=== PATIENT | female | born 1965 | race Caucasian/White ===

== ENCOUNTER → 2022-11-16 | Outpatient (CLI) | payer OTHER | LOC: M PLARAD 13:06 | PROVIDERS: ATTEND Orthopaedic Surgery Hand Surgery | DX: M79.641 Pain in right hand (principal) ==

== ENCOUNTER 2022-12-05 10:10 | Day surgery (SDC) | payer OTHER ==
[~2022-12-05] VITALS: Ht 162.6 cm; Wt 113.9 kg
[~2022-12-05 10:10] MED LIST: GABA-1171 PO
[2022-12-05] MEDS ORDERED: LIDOCAINE 1% SDV 5ML VIAL SC PRN (10:30)
[2022-12-05] MEDS ORDERED: LR 1,000 ML IV SCH ×2 (10:30→15:10)
[2022-12-05] MEDS ORDERED: ceFAZolin SOD 2 GM in IV 1 EA IV ONE (13:05)
[2022-12-05] MEDS ORDERED: BACITRACIN OINTMENT 30GM TUBE As Ordered ONE (13:49)
[2022-12-05] MEDS ORDERED: BUPIVACAINE HCL 0.25% 30ML VIAL As Ordered ONE (13:49)
[2022-12-05] MEDS ORDERED: LIDOCAINE 1% MDV 20ML VIAL As Ordered ONE (13:49)
[2022-12-05] MEDS ORDERED: MIDAZOLAM INJ 2MG/2ML VIAL As Ordered ONE (13:56)
[2022-12-05] MEDS ORDERED: LIDOCAINE 2% 100MG/5ML SDV (FOR ANES.) As Ordered ONE (13:56)
[2022-12-05] MEDS ORDERED: ONDANSETRON 4MG 2ML VIAL As Ordered ONE ×2 (13:56→15:15)
[2022-12-05] MEDS ORDERED: fentaNYL 100 MCG/2 ML INJECTION As Ordered ONE ×2 (13:56→15:10)
[2022-12-05] MEDS ORDERED: propofoL 200 MG/20 ML VIAL As Ordered ONE (13:57)
[2022-12-05] MEDS ORDERED: ACETAMINOPHEN 1000MG 100ML IV BAG As Ordered ONE (14:15)
[2022-12-05] MEDS ORDERED: KETOROLAC 60MG 2ML VIAL As Ordered ONE (14:16)
[2022-12-05] MEDS: fentaNYL 100 MCG/2 ML INJECTION IV PRN ×4 (15:10→15:25)
[2022-12-05] MEDS ORDERED: oxyCODONE 5MG TAB PO PRN (15:10)
[2022-12-05] MEDS ORDERED: ONDANSETRON 4MG 2ML VIAL IV PRN (15:10)
[2022-12-05] MEDS ORDERED: PERC5TAB12 PO (15:20)
[2022-12-05 16:10] VITALS: BP 139/94
== END 2022-12-05 16:15 | disposition home or self-care (01) ==
LOC: M SDC 10:10
PROVIDERS: ATTEND Orthopaedic Surgery Hand Surgery
DX: C43.61 Malignant melanoma of right upper limb, including shoulder (principal); B95.61 Methicillin susceptible Staphylococcus aureus infection as the cause of diseases classified elsewhere; B95.4 Other streptococcus as the cause of diseases classified elsewhere; E03.9 Hypothyroidism, unspecified; M54.9 Dorsalgia, unspecified; Z79.899 Other long term (current) drug therapy; Z79.890 Hormone replacement therapy; Z91.14 Patient's other noncompliance with medication regimen; Z85.42 Personal history of malignant neoplasm of other parts of uterus
CPT/HCPCS: 26111; 76000; 87070; 87075; 87076; 87077; 87102; 87116; 87186; 87205; 87206; 88307; J0690; J1100; J2250; J2405; J3010

== ENCOUNTER → 2023-01-14 | Outpatient (CLI) | payer OTHER ==
[~2023-01-14] MED LIST changes: +PERC5TAB12 PO
== END ==
LOC: M PLARAD 14:13
PROVIDERS: ATTEND Internal Medicine
DX: C43.61 Malignant melanoma of right upper limb, including shoulder (principal)
CPT/HCPCS: 78816; A9552

== ENCOUNTER → 2023-01-22 | Outpatient (CLI) | payer OTHER ==
[~2023-01-22] MED LIST changes: +PROHANCE 279.3MG/ML 15ML VIAL ONE; +PROHANCE 279.3MG/ML 5ML VIAL ONE
== END ==
LOC: M PLAIMG 09:47
DX: C43.61 Malignant melanoma of right upper limb, including shoulder (principal)

== ENCOUNTER → 2023-02-04 | Outpatient (CLI) | payer OTHER ==
[~2023-02-04] VITALS: Ht 162.6 cm; Wt 52.0 kg
[~2023-02-04] MED LIST changes: +LEVO25TA5 PO; +LIDOCAINE 1% MDV 20ML VIAL As Ordered ONE; +MIDAZOLAM INJ 2MG/2ML VIAL As Ordered ONE; +NS 1,000 ML IV SCH; -PROHANCE 279.3MG/ML 15ML VIAL ONE; -PROHANCE 279.3MG/ML 5ML VIAL ONE; +ceFAZolin 2 GM/D5W 50 ML IV BAG As Ordered ONE; +ceFAZolin SOD 2 GM in IV 1 EA IV ONE; +diphenhydrAMINE 50MG/ML VIAL As Ordered ONE; +fentaNYL 100 MCG/2 ML INJECTION As Ordered ONE
[2023-02-04 13:00] VITALS: BP 108/78
== END ==
LOC: M IRPRO 08:54
PROVIDERS: ATTEND Internal Medicine Medical Oncology
DX: C43.9 Malignant melanoma of skin, unspecified (principal)
CPT/HCPCS: 36561; 99152; 99153; C1769; C1788; C1894; J0690; J1200; J2250; J3010

== ENCOUNTER → 2023-02-19 | Outpatient (POV) | payer OTHER ==
[~2023-02-19] VITALS: Ht 162.6 cm; Wt 113.6 kg
[~2023-02-19] MED LIST changes: -LIDOCAINE 1% MDV 20ML VIAL As Ordered ONE; -MIDAZOLAM INJ 2MG/2ML VIAL As Ordered ONE; -NS 1,000 ML IV SCH; -ceFAZolin 2 GM/D5W 50 ML IV BAG As Ordered ONE; -ceFAZolin SOD 2 GM in IV 1 EA IV ONE; -diphenhydrAMINE 50MG/ML VIAL As Ordered ONE; -fentaNYL 100 MCG/2 ML INJECTION As Ordered ONE
[2023-02-19 14:00] VITALS: BP 135/90
== END ==
LOC: M IRPOV 13:47
PROVIDERS: ATTEND Radiology Diagnostic Radiology
DX: Z45.2 Encounter for adjustment and management of vascular access device (principal)

== ENCOUNTER 2023-03-03 13:16 | Emergency (ER) | payer OTHER ==
[~2023-03-03] VITALS: Ht 162.6 cm; Wt 110.3 kg
[2023-03-03] MEDS ORDERED: NS 1,000 ML IV ONE ×2 (14:05→15:30)
[2023-03-03 14:25] LABS: BASO # 0.1 10^3/uL (0.0-0.2); BASO % 0.8 % (0.0-1.0); EOS # 0.6 10^3/uL (0.0-0.5); EOS % 4.5 % (0.0-3.0); HEMATOCRIT 40.1 % (36.0-47.0); LYMPH # 1.9 10^3/uL (1.5-5.0); MEAN CORPUSCULAR HEMOGLOBIN 28.8 pg (27.0-33.0); MEAN CORPUSCULAR HGB CONC 32.4 g/dl (32.0-36.5); MEAN CORPUSCULAR VOLUME 88.7 fl (80.0-96.0); MONO % 7.6 % (2.0-8.0); NEUTROPHILS # 8.9 10^3/uL (1.5-8.5); NEUTROPHILS % 71.5 % (36.0-66.0); PLATELET COUNT, AUTOMATED 388 10^3/uL (150-450); RED BLOOD COUNT 4.52 10^6/uL (4.00-5.40); WHITE BLOOD COUNT 12.5 10^3/uL (4.0-10.0)
[2023-03-03 14:51] LABS: LIPASE 34 U/L (12-53)
[2023-03-03 14:53] LABS: ALBUMIN 3.2 G/DL (3.2-5.2); ALKALINE PHOSPHATASE 187 U/L (46-116); ALT/SGPT 58 U/L (7.0-40); AST/SGOT 40 U/L (<34); BILIRUBIN,DIRECT 0.2 MG/DL (<0.4); BILIRUBIN,TOTAL 0.5 MG/DL (0.3-1.2); BLOOD UREA NITROGEN 16 MG/DL (9-23); CALCIUM LEVEL 9.5 MG/DL (8.5-10.1); CARBON DIOXIDE LEVEL 26 MMOL/L (20-31); CHLORIDE LEVEL 104 MMOL/L (98-107); CREATININE FOR GFR 0.74 MG/DL (0.55-1.30); GLOMERULAR FILTRATION RATE > 60.0 (>51); GLUCOSE, FASTING 125 MG/DL (60-100); SODIUM LEVEL 139 MMOL/L (136-145); TOTAL PROTEIN 7.5 G/DL (5.7-8.2)
[2023-03-03] MEDS ORDERED: ISOVUE-370 76% 100ML VIAL As Ordered ONE (15:13)
[2023-03-03] MEDS ORDERED: ONDA4TAB6 PO (16:12)
[2023-03-03 16:56] VITALS: BP 118/63
[2023-03-08] MEDS ORDERED: PRED10TA2 PO (09:01)
[2023-03-08] MEDS ORDERED: FAMO20TA PO (09:01)
== END 2023-03-03 17:11 | disposition home or self-care (01) ==
LOC: M ED 13:16
DX: E86.0 Dehydration (principal); C43.9 Malignant melanoma of skin, unspecified; E78.5 Hyperlipidemia, unspecified; E03.9 Hypothyroidism, unspecified; Z79.899 Other long term (current) drug therapy
CPT/HCPCS: 36415; 71045; 74177; 80048; 80076; 83690; 85025; 87486; 87581; 87633; 87798; 99284; Q9967

== ENCOUNTER → 2023-03-15 | Outpatient (CLI) | payer OTHER ==
[~2023-03-15] MED LIST changes: +AUGM500T34 PO; +ELIQ5TAB PO; +FAMO20TA PO; +ISOVUE-370 76% 100ML VIAL As Ordered ONE; +ONDA4TAB6 PO; +PRED10TA2 PO
== END ==
LOC: M RAD 09:42
PROVIDERS: ATTEND Internal Medicine Medical Oncology
DX: D03.8 Melanoma in situ of other sites (principal)
CPT/HCPCS: 71260; Q9967

== ENCOUNTER → 2023-05-13 | Outpatient (CLI) | payer OTHER ==
[~2023-05-13] MED LIST changes: +AMOX875T2 PO; -ISOVUE-370 76% 100ML VIAL As Ordered ONE; +LEVO50TA5 PO; +LIDO30CR18 TOP
== END ==
LOC: M PLARAD 13:05
PROVIDERS: ATTEND Internal Medicine Medical Oncology
DX: C43.61 Malignant melanoma of right upper limb, including shoulder (principal)
CPT/HCPCS: 78816; A9552

== ENCOUNTER → 2024-04-02 | Outpatient (CLI) | payer OTHER ==
[~2024-04-02] MED LIST changes: +GASTROGRAFIN SOLUTION 30ML As Ordered ONE; +ISOVUE-370 76% 100ML VIAL As Ordered ONE; +LEVO100T5 PO; +ONDA-282 PO; -ONDA4TAB6 PO; +SYNT75TA PO
== END ==
LOC: M RAD 12:42
PROVIDERS: ATTEND Internal Medicine Medical Oncology
DX: C43.9 Malignant melanoma of skin, unspecified (principal)
CPT/HCPCS: 71260; 74177; Q9963; Q9967